=== PATIENT | female | born 2000 | race Caucasian/White ===

== ENCOUNTER 2018-06-15 15:02 | Emergency (ER) | payer BC ==
--- NOTE | 2018-06-15 15:47 | RAD ---
XR Chest Pa Lat STANDARD HISTORY: Shortness of breath COMPARISON: None. FINDINGS: Heart size and mediastinum are within normal limits. The lungs are clear of infiltrates. No significant bony findings. IMPRESSION: No active intrathoracic disease.
== END 2018-06-15 17:02 | disposition home or self-care (01) ==
LOC: ERS 15:02
DX: J45.901 Unspecified asthma with (acute) exacerbation (principal)
CPT/HCPCS: 71046